=== PATIENT | female | born 1935 | race Caucasian/White ===

== ENCOUNTER 2019-07-28 16:22 | Emergency (ER) | payer MEDICARE ==
[~2019-07-28] VITALS: Ht 152.4 cm; Wt 89.8 kg
[~2019-07-28 16:22] MED LIST: ACET325; ACTONEL; ASCO1ER; ATOR10; ATOR20; BISA5EC PO; BUDE200IP; CALCAVITDA; CALCIUM/D; CELE200; CIPR500 PO; CYCL10 PO; Cipro500 MG PO; ESOM20; FIBE4P; FURO20; Flagyl500 MG PO; GABA100; GLIP10; GLIP2.5ER; GLUCHON; HYDACE10B; HYDMOR2 PO; HYDMOR4 PO; INSU7030P; KETO10 PO; LETR2.5; MAXIDE 75/50; METO25ER; MULVITMINF; OXYACE5T PO; OXYACE7.5T; OXYACE7.5T PO; POTA10T; RISE35; RXCYCL10 PO; RXHYDMOR2 PO; ST. JOHN'S WORT; TEGA2; TEGA6; TEMA15; TRIHYD5075; ZOLTAREN; Zofran4 MG PO; [UNRECOGNIZED DRUG - OTHER]; [UNRECOGNIZED DRUG - OTHER]; [UNRECOGNIZED DRUG - REMARK]
[2019-07-28 17:06] LABS: BASOPHILS ABSOLUTE AUTO 0.03 K/mm3 (0.00-0.23); BASOPHILS PERCENT AUTO 0 % (0-2); EOSINOPHILS ABSOLUTE AUTO 0.13 K/mm3 (0.00-0.68); EOSINOPHILS PERCENT AUTO 1 % (0-6); Hematocrit 45.7 % (33.0-51.0); IMMATURE GRAN ABSOLUTE AUTO 0.03 K/mm3 (0.00-0.10); IMMATURE GRAN PERCENT AUTO 0 % (0-1); LYMPHOCYTES ABSOLUTE AUTO 3.16 K/mm3 (0.84-5.20); LYMPHOCYTES PERCENT AUTO 34 % (21-46); MONOCYTES ABSOLUTE AUTO 0.48 K/mm3 (0.16-1.47); MONOCYTES PERCENT AUTO 5 % (4-13); Mean Corpuscular HGB 27.5 pg (26.0-34.0); Mean Corpuscular HGB Conc 30.6 g/dL (31.5-36.5); Mean Corpuscular Volume 90 fL (80-100); Mean Platelet Volume 9.6 fL (9.1-12.4); NEUTROPHILS ABSOLUTE AUTO 5.36 K/mm3 (1.96-9.15); NEUTROPHILS PERCENT AUTO 58 % (41-73); Platelet Count 244 K/mm3 (150-400); RDW Coefficient Variation 15.7 % (11.7-14.2); White Blood Cell Count 9.19 K/mm3 (4.00-11.30)
[2019-07-28 17:23] LABS: Anion Gap 4 mmol/L (6-16); Blood Urea Nitrogen 29 mg/dL (8-24); Bun/Creatinine Ratio 31.4 (12.0-20.0); CO2, Blood 29 mmol/L (21-32); Calcium, Blood 9.4 mg/dL (8.5-10.1); Chloride, Blood 106 mmol/L (98-108); Creatinine, Blood 0.92 mg/dL (0.40-1.00); Glomerular Filtration Rate >60 (60-); Glucose, Blood 116 mg/dL (70-99); Potassium, Blood 4.2 mmol/L (3.5-5.5); Sodium, Blood 139 mmol/L (136-145)
[2019-07-28] MEDS ORDERED: ALLOPURINOL100 M1 PO (18:10)
[2019-07-28] MEDS ORDERED: CELECOXIB200 M1 PO (18:11)
[2019-07-28] MEDS ORDERED: Diltiazem ER120 M2 PO (18:13)
[2019-07-28] MEDS ORDERED: Nexium40 MG PO (18:13)
[2019-07-28] MEDS ORDERED: METO25ER PO (18:14)
[2019-07-28] MEDS ORDERED: FURO20 PO (18:14)
[2019-07-28] MEDS ORDERED: STIOLTO RESPIMAT4 GM INH (18:16)
[2019-07-28] MEDS ORDERED: DICLOFENAC SOD100 G1 TOP (18:17)
== END 2019-07-28 19:51 | disposition home or self-care (01) ==
LOC: ER 16:22
PROVIDERS: Emergency Medicine
DX: M97.02XA Periprosthetic fracture around internal prosthetic left hip joint, initial encounter (principal); M97.12XA Periprosthetic fracture around internal prosthetic left knee joint, initial encounter; I10 Essential (primary) hypertension; E11.9 Type 2 diabetes mellitus without complications; I25.10 Atherosclerotic heart disease of native coronary artery without angina pectoris; K21.9 Gastro-esophageal reflux disease without esophagitis; Z79.899 Other long term (current) drug therapy; Z96.653 Presence of artificial knee joint, bilateral; Z96.642 Presence of left artificial hip joint; W19.XXXA Unspecified fall, initial encounter
CPT/HCPCS: 36415; 51702; 71045; 73552; 73560-LT; 80048; 85025; 93005; 93010; 96374; 99285-25; J1170; J1580